=== PATIENT | female | born 1955 | race Caucasian/White ===

== ENCOUNTER 2017-04-14 08:07 | Inpatient (IN) | payer BC ==
[~2017-04-14] VITALS: Ht 160 cm; Wt 64.0 kg
[~2017-04-14 08:07] MED LIST: LANS30CA10 PO; THYROID SUPPLEMENT PO
[2017-04-14 08:13] VITALS: BP_SYST 108
[2017-04-14] MEDS ORDERED: NACL 0.9% 1,000 ML IV SCH (08:26)
[2017-04-14] MEDS ORDERED: PANTOPRAZOLE SODIUM 80 MG in NS 100 ML IV ONE (08:30)
[2017-04-14] MEDS ORDERED: ONDANSETRON HCL 4 MG/2 ML VIAL IVP ONE (08:30)
[2017-04-14 08:55] LABS: BASOPHILS # (AUTO) 0.1 K/uL (0.0-0.2); BASOPHILS % (AUTO) 0.5 % (0.0-2.0); EOSINOPHILS % (AUTO) 0.2 % (0.0-4.0); HEMATOCRIT 41.2 % (36-48); HEMOGLOBIN 13.8 g/dL (12.0-16.0); LYMPHOCYTES # (AUTO) 1.3 K/uL (1.0-5.5); MEAN CORPUSCULAR HEMOGLOBIN 31 pg (27-31); MEAN CORPUSCULAR HGB CONC 34 % (32-36); MEAN CORPUSCULAR VOLUME 92 fL (79.0-98.0); MONOCYTES # (AUTO) 0.5 K/uL (0.0-1.0); MONOCYTES % (AUTO) 2.8 % (1.7-9.3); NEUTROPHILS # (AUTO) 14.3 K/uL (1.8-7.7); NEUTROPHILS % (AUTO) 88.5 % (40.0-70.0); PLATELET COUNT (AUTO) 320 K/uL (130-430); RED BLOOD CELL COUNT(AUTO) 4.48 MIL/uL (4.2-6.2); RED CELL DISTRIBUTION WIDTH 11.9 % (9.0-15.0); WHITE BLOOD COUNT (AUTO) 16.2 K/uL (4.8-10.8)
[2017-04-14] MEDS ORDERED: PIPERACILLIN/TAZO 4.5 GM in NS 100 ML IV ONE (09:00)
[2017-04-14] MEDS ORDERED: VANCOMYCIN HCL 1,000 MG in NS 250 ML IV ONE (09:00)
[2017-04-14] MEDS ORDERED: MORPHINE 2 MG/ML INJ. SYRINGE IVP ONE (09:00)
[2017-04-14 09:02] LABS: CALCIUM 9.3 mg/dL (8.4-11.0); CREATININE 1.02 mg/dL (0.55-1.30); POTASSIUM 3.5 mmol/L (3.5-5.1)
[2017-04-14 09:03] LABS: PROTHROMBIN TIME 10.8 SECS (9.5-12.5)
[2017-04-14 09:07] LABS: ALBUMIN 4.4 g/dL (3.4-4.8); TOTAL BILIRUBIN 0.5 mg/dL (0.0-1.0); TOTAL PROTEIN, SERUM 7.8 g/dL (6.4-8.3)
[2017-04-14] MEDS ORDERED: PIPERACILLIN/TAZOBACTAM 4.5 GM/VIAL (ZOSYN) IV ONE (09:52)
[2017-04-14] MEDS ORDERED: VANCOMYCIN HCL 1000 MG/VIAL IV ONE (10:22)
[2017-04-14] MEDS ORDERED: PANTOPRAZOLE SODIUM 40 MG/VIAL (PROTONIX) ONE (10:22)
[2017-04-14] MEDS ORDERED: ONDANSETRON HCL 4 MG/2 ML VIAL IVP PRN (11:00)
[2017-04-14] MEDS ORDERED: metroNIDAZOLE 500 mg/NS 100 ML IV ONE (11:00)
[2017-04-14] MEDS ORDERED: MORPHINE 2 MG/ML INJ. SYRINGE IVP PRN (11:00)
[2017-04-14] MEDS ORDERED: MORPHINE 4 MG/ML INJ. SYRINGE IVP PRN (11:00)
[2017-04-14 11:26] VITALS: BP_SYST 91
[2017-04-14] MEDS ORDERED: PANTOPRAZOLE SODIUM 40 MG/VIAL (PROTONIX) IVP ONE (11:30)
[2017-04-14] MEDS: D5NS 1,000 ML IV SCH ×2 (12:13→21:00)
[2017-04-14] MEDS: LEVOFLOXACIN 500 MG/D5W 100 ML IV SCH (12:14)
[2017-04-14 15:11] LABS: HEMATOCRIT 38.4 % (36-48); HEMOGLOBIN 12.9 g/dL (12.0-16.0)
[2017-04-14 16:23] VITALS: BP_SYST 112
[2017-04-14] MEDS: METOCLOPRAMIDE HCL 10 MG/2 ML VIAL IVP PRN (18:25)
[2017-04-14] MEDS: ACETAMINOPHEN 325 MG TABLET PO PRN ×2 (18:25→23:30)
[2017-04-14] MEDS: metroNIDAZOLE 500 mg/NS 100 ML IV SCH (18:25)
[2017-04-14 19:30] VITALS: BP_SYST 105
[2017-04-14 21:07] LABS: HEMOGLOBIN 12.1 g/dL (12.0-16.0)
[2017-04-14] MEDS: PANTOPRAZOLE SODIUM 40 MG/VIAL (PROTONIX) IVP SCH (21:59)
[2017-04-15] MEDS: METOCLOPRAMIDE HCL 10 MG/2 ML VIAL IVP PRN ×2 (00:28→09:08)
[2017-04-15] MEDS: metroNIDAZOLE 500 mg/NS 100 ML IV SCH ×3 (02:28→18:05)
[2017-04-15 02:46] LABS: HEMATOCRIT 34.7 % (36-48); HEMOGLOBIN 11.8 g/dL (12.0-16.0)
[2017-04-15 03:53] VITALS: BP_SYST 117
[2017-04-15 08:00] VITALS: BP_SYST 101
[2017-04-15 08:30] LABS: HEMATOCRIT 34.3 % (36-48); HEMOGLOBIN 11.7 g/dL (12.0-16.0)
[2017-04-15] MEDS: PANTOPRAZOLE SODIUM 40 MG/VIAL (PROTONIX) IVP SCH ×2 (09:09→20:42)
[2017-04-15] MEDS: LEVOFLOXACIN 500 MG/D5W 100 ML IV SCH (10:00)
[2017-04-15 12:30] VITALS: BP_SYST 107
[2017-04-15 13:06] LABS: HEMATOCRIT 34.1 % (36-48); HEMOGLOBIN 11.6 g/dL (12.0-16.0)
[2017-04-15] MEDS: D5NS 1,000 ML IV SCH ×2 (15:59→20:42)
[2017-04-15 16:18] VITALS: BP_SYST 107
[2017-04-15] MEDS ORDERED: BISACODYL 5 MG TABLET.DR (DULCOLAX) PO ONE (17:00)
[2017-04-15] MEDS ORDERED: GOLYTELY / COLYTE SOLUTION 4 LITERS PO ONE (18:00)
[2017-04-15 18:59] LABS: HEMATOCRIT 33.3 % (36-48); HEMOGLOBIN 10.9 g/dL (12.0-16.0)
[2017-04-15 19:35] VITALS: BP_SYST 137
[2017-04-15 23:07] LABS: HEMATOCRIT 33.9 % (36-48); HEMOGLOBIN 11.8 g/dL (12.0-16.0)
[2017-04-16] VITALS (7 sets, daily range): BP systolic 97–114
[2017-04-16] MEDS: METOCLOPRAMIDE HCL 10 MG/2 ML VIAL IVP PRN ×2 (00:27→20:45)
[2017-04-16] MEDS: metroNIDAZOLE 500 mg/NS 100 ML IV SCH ×3 (03:39→19:02)
[2017-04-16] MEDS: D5NS 1,000 ML IV SCH ×2 (03:52→19:01)
[2017-04-16] MEDS ORDERED: LEVO75TA7 PO (05:59)
[2017-04-16 06:33] LABS: HEMATOCRIT 30.5 % (36-48); HEMOGLOBIN 10.4 g/dL (12.0-16.0)
[2017-04-16] MEDS: PANTOPRAZOLE SODIUM 40 MG/VIAL (PROTONIX) IVP SCH ×2 (09:00→20:45)
[2017-04-16 10:51] LABS: BASOPHILS % (AUTO) 0.4 % (0.0-2.0); EOSINOPHILS % (AUTO) 0.5 % (0.0-4.0); HEMATOCRIT 30.8 % (36-48); HEMOGLOBIN 10.4 g/dL (12.0-16.0); LYMPHOCYTES # (AUTO) 1.5 K/uL (1.0-5.5); LYMPHOCYTES % (AUTO) 20.8 % (20.5-51.5); MEAN CORPUSCULAR HEMOGLOBIN 31 pg (27-31); MEAN CORPUSCULAR HGB CONC 34 % (32-36); MEAN CORPUSCULAR VOLUME 92 fL (79.0-98.0); MONOCYTES # (AUTO) 0.4 K/uL (0.0-1.0); MONOCYTES % (AUTO) 5.3 % (1.7-9.3); NEUTROPHILS # (AUTO) 5.3 K/uL (1.8-7.7); PLATELET COUNT (AUTO) 196 K/uL (130-430); RED BLOOD CELL COUNT(AUTO) 3.37 MIL/uL (4.2-6.2); RED CELL DISTRIBUTION WIDTH 11.9 % (9.0-15.0); WHITE BLOOD COUNT (AUTO) 7.2 K/uL (4.8-10.8)
[2017-04-16] MEDS: LEVOFLOXACIN 500 MG/D5W 100 ML IV SCH (11:09)
[2017-04-16] MEDS ORDERED: MEPERIDINE HCL/PF 100 MG/ML AMP ONE (11:21)
[2017-04-16] MEDS ORDERED: SIMETHICONE 40 MG/0.6 ML ML ONE (11:21)
[2017-04-16] MEDS: MIDAZOLAM HCL 5 MG/5 ML VIAL ONE ×3 (13:02→13:06)
[2017-04-16 17:15] LABS: HEMATOCRIT 32.1 % (36-48); HEMOGLOBIN 10.5 g/dL (12.0-16.0)
[2017-04-16] MEDS: ACETAMINOPHEN 325 MG TABLET PO PRN (20:46)
[2017-04-16 23:05] LABS: HEMATOCRIT 29.7 % (36-48)
[2017-04-17 01:05] VITALS: BP_SYST 111
[2017-04-17] MEDS: metroNIDAZOLE 500 mg/NS 100 ML IV SCH ×2 (02:03→11:11)
[2017-04-17] MEDS: D5NS 1,000 ML IV SCH ×2 (02:04→09:00)
[2017-04-17 05:04] VITALS: BP_SYST 110
[2017-04-17 06:55] LABS: BASOPHILS % (AUTO) 0.2 % (0.0-2.0); EOSINOPHILS % (AUTO) 0.6 % (0.0-4.0); HEMATOCRIT 28.9 % (36-48); HEMOGLOBIN 9.8 g/dL (12.0-16.0); LYMPHOCYTES # (AUTO) 1.6 K/uL (1.0-5.5); LYMPHOCYTES % (AUTO) 24.3 % (20.5-51.5); MEAN CORPUSCULAR HEMOGLOBIN 31 pg (27-31); MEAN CORPUSCULAR HGB CONC 34 % (32-36); MEAN CORPUSCULAR VOLUME 91 fL (79.0-98.0); MONOCYTES # (AUTO) 0.3 K/uL (0.0-1.0); MONOCYTES % (AUTO) 5.4 % (1.7-9.3); NEUTROPHILS # (AUTO) 4.5 K/uL (1.8-7.7); NEUTROPHILS % (AUTO) 69.5 % (40.0-70.0); PLATELET COUNT (AUTO) 196 K/uL (130-430); RED BLOOD CELL COUNT(AUTO) 3.16 MIL/uL (4.2-6.2); RED CELL DISTRIBUTION WIDTH 11.8 % (9.0-15.0); WHITE BLOOD COUNT (AUTO) 6.4 K/uL (4.8-10.8)
[2017-04-17 07:23] LABS: ALBUMIN 2.9 g/dL (3.4-4.8); CALCIUM 7.8 mg/dL (8.4-11.0); CREATININE 0.67 mg/dL (0.55-1.30); TOTAL BILIRUBIN 0.3 mg/dL (0.0-1.0); TOTAL PROTEIN, SERUM 5.7 g/dL (6.4-8.3)
[2017-04-17 07:29] LABS: POTASSIUM 2.8 mmol/L (3.5-5.1)
[2017-04-17 08:00] VITALS: BP_SYST 115
[2017-04-17] MEDS ORDERED: POTASSIUM CHLORIDE 20 MEQ TAB.PRT.SR PO ONE ×2 (08:00→17:30)
[2017-04-17] MEDS: PANTOPRAZOLE SODIUM 40 MG/VIAL (PROTONIX) IVP SCH (09:20)
[2017-04-17] MEDS: LEVOFLOXACIN 500 MG/D5W 100 ML IV SCH (11:11)
[2017-04-17 12:50] VITALS: BP_SYST 114
[2017-04-17 16:56] VITALS: BP_SYST 121
[2017-04-17 18:14] VITALS: BP_SYST 98
== END 2017-04-17 18:40 | disposition home or self-care (01) | DRG 378 ==
LOC: SED 08:07 → SMU 10:02
PROVIDERS: ADMIT Internal Medicine Hospice and Palliative Medicine; ATTEND Internal Medicine Hospice and Palliative Medicine
PROC: 0DBN8ZX Excision of Sigmoid Colon, Via Natural or Artificial Opening Endoscopic, Diagnostic (ICD-10-PCS; 2017-04-16)
PROC: 0DBM8ZX Excision of Descending Colon, Via Natural or Artificial Opening Endoscopic, Diagnostic (ICD-10-PCS; principal; 2017-04-16 12:00)
DX: K92.2 Gastrointestinal hemorrhage, unspecified (principal); K51.50 Left sided colitis without complications; D64.9 Anemia, unspecified; E03.9 Hypothyroidism, unspecified; F17.210 Nicotine dependence, cigarettes, uncomplicated; K64.8 Other hemorrhoids; Z79.899 Other long term (current) drug therapy
CPT/HCPCS: 36415; 45380; 71010; 80053; 83605; 83690-TC; 84484; 85018-TC; 85025; 85610-TC; 86886; 86900; 86901; 87040-TC; 87045-TC; 87046; 87177; 87230-TC; 88305; 88307; 89055; 93005; 96374; 96375; 99285; C9113; J1956; J2175; J2250; J2270; J2405; J2543; J2765; J3370; J3490; J7030; J7042; J7050; J7060

== ENCOUNTER 2018-09-23 13:51 | Emergency (ER) | payer BC ==
[~2018-09-23] VITALS: Ht 160 cm; Wt 68.0 kg
[2018-09-23 13:51] VITALS: BP_SYST 134
[~2018-09-23 13:51] MED LIST changes: -LANS30CA10 PO; +LANS30CA53 PO; +LEVO75TA7 PO; -THYROID SUPPLEMENT PO
[2018-09-23] MEDS: DIPHENHYDRAMINE INJ 50 MG/ML VIAL IM ONE (14:27)
[2018-09-23 14:43] VITALS: BP_SYST 134
== END 2018-09-23 14:43 | disposition home or self-care (01) ==
LOC: SED 13:51
DX: H10.13 Acute atopic conjunctivitis, bilateral (principal); R03.0 Elevated blood-pressure reading, without diagnosis of hypertension; K21.9 Gastro-esophageal reflux disease without esophagitis
CPT/HCPCS: 96372; 99283; J1200

== ENCOUNTER 2021-01-21 20:10 | Emergency (ER) | payer BC ==
[~2021-01-21] VITALS: Ht 160 cm; Wt 71.7 kg
[2021-01-21 20:34] VITALS: BP_SYST 132
--- NOTE | 2021-01-21 20:34 | NUR ---
Patient triaged and placed in waiting room. VSS and patient appears in no acute distress at this time. Accompanied by SELF, awaiting available bed, and MD notified of need for MSE.
--- NOTE | 2021-01-21 20:45 | NUR ---
Patient to ER bed 7 to gown for evaluation. Side rails up. Report given to NAEEM BROWN.
--- NOTE | 2021-01-21 21:00 | NUR ---
Patient AAO and ambulatory arrived to ER C/O blood in stool starting today. Patient stated she took 2 colace capsules and after has been having bright red bloody bowel movements. Patient has a history of colitis which has resolved per patient. Denies any dizziness. VSS, cap refill <3 seconds. currently denies any pain but states she does get occasional abdominal cramps. awaiting for MD hardy.
--- NOTE | 2021-01-21 21:09 | NUR ---
Dr. Mcmahon at bedside for evaluation.
--- NOTE | 2021-01-21 21:49 | NUR ---
lab at bedside to collect blood samples and sent to for analysis.
--- NOTE | 2021-01-21 22:15 | NUR ---
# 20 gauge angiocath placed to left AC. Use of asceptic technique. Opsite placed over site. Blood return noted. Flushed with 10 cc of normal saline. No evidence of infiltration noted. Patient tolerated well.
[2021-01-21 22:26] LABS: CALCIUM 9.1 mg/dL (8.4-11.0); CREATININE 0.97 mg/dL (0.55-1.30); POTASSIUM 4.2 mmol/L (3.5-5.1)
[2021-01-21 22:29] LABS: PROTHROMBIN TIME 10.6 SECS (9.5-12.5)
[2021-01-21 22:31] LABS: ALBUMIN 4.2 g/dL (3.4-4.8); TOTAL BILIRUBIN 0.5 mg/dL (0.0-1.0)
[2021-01-21 22:37] LABS: BASOPHILS % (AUTO) 0.1 % (0.0-2.0); EOSINOPHILS % (AUTO) 0.1 % (0.0-4.0); HEMATOCRIT 40.4 % (36-48); HEMOGLOBIN 13.7 g/dL (12.0-16.0); LYMPHOCYTES # (AUTO) 0.8 K/uL (1.0-5.5); LYMPHOCYTES % (AUTO) 8.5 % (20.5-51.5); MEAN CORPUSCULAR HEMOGLOBIN 30 pg (27-31); MEAN CORPUSCULAR HGB CONC 34 % (32-36); MEAN CORPUSCULAR VOLUME 89 fL (79.0-98.0); MONOCYTES # (AUTO) 0.3 K/uL (0.0-1.0); NEUTROPHILS # (AUTO) 8.2 K/uL (1.8-7.7); NEUTROPHILS % (AUTO) 88.3 % (40.0-70.0); PLATELET COUNT (AUTO) 262 K/uL (130-430); RED BLOOD CELL COUNT(AUTO) 4.54 MIL/uL (4.2-6.2); RED CELL DISTRIBUTION WIDTH 13.2 % (9.0-15.0); WHITE BLOOD COUNT (AUTO) 9.3 K/uL (4.8-10.8)
--- NOTE | 2021-01-21 23:07 | NUR ---
Report given to Dolores HARTLEY
[2021-01-21 23:20] VITALS: BP_SYST 130
--- NOTE | 2021-01-21 23:21 | NUR ---
Patient given written and verbal discharge instructions and verbalizes understanding. DR. URIAH VILLAGOMEZ MD discussed with patient the results and treatment provided. Patient in stable condition. ID arm band removed. IV catheter removed intact and dressing applied, no active bleeding. Patient educated on pain management and to follow up with PMD. Pain Scale 0/10. Opportunity for questions provided and answered. Medication side effect fact sheet provided.
== END 2021-01-21 23:20 | disposition home or self-care (01) ==
LOC: SED 20:10
DX: K62.5 Hemorrhage of anus and rectum (principal); K60.2 Anal fissure, unspecified; K21.9 Gastro-esophageal reflux disease without esophagitis; Z79.899 Other long term (current) drug therapy
CPT/HCPCS: 36415; 74178; 76376; 80053; 83605; 83690; 85025; 85610; 86886; 86900; 86901; 99285; Q9967

== ENCOUNTER 2022-04-10 16:33 | Emergency (ER) | payer BC ==
[~2022-04-10] VITALS: Ht 157.5 cm; Wt 69.9 kg
[2022-04-10 16:48] VITALS: BP_SYST 133
--- NOTE | 2022-04-10 16:57 | NUR ---
Patient triaged and placed in ER waiting room awaiting available bed in main ED. MD aware of MSE needs.
[2022-04-10] MEDS ORDERED: ASPIRIN 81 MG TAB.CHEW PO ONE (19:00)
[2022-04-10] MEDS ORDERED: IBUPROFEN 600 MG TABLET PO ONE (19:00)
[2022-04-10 19:19] LABS: BASOPHILS # (AUTO) 0.1 K/uL (0.0-0.2); BASOPHILS % (AUTO) 1.3 % (0.0-2.0); EOSINOPHILS % (AUTO) 0.8 % (0.0-4.0); HEMATOCRIT 41.4 % (36-48); HEMOGLOBIN 14.2 g/dL (12.0-16.0); LYMPHOCYTES # (AUTO) 1.1 K/uL (1.0-5.5); LYMPHOCYTES % (AUTO) 20.8 % (20.5-51.5); MEAN CORPUSCULAR HEMOGLOBIN 30 pg (27-31); MEAN CORPUSCULAR HGB CONC 34 % (32-36); MEAN CORPUSCULAR VOLUME 89 fL (79.0-98.0); MONOCYTES # (AUTO) 0.3 K/uL (0.0-1.0); MONOCYTES % (AUTO) 5.6 % (1.7-9.3); NEUTROPHILS # (AUTO) 3.9 K/uL (1.8-7.7); NEUTROPHILS % (AUTO) 71.5 % (40.0-70.0); PLATELET COUNT (AUTO) 260 K/uL (130-430); RED BLOOD CELL COUNT(AUTO) 4.67 MIL/uL (4.2-6.2); WHITE BLOOD COUNT (AUTO) 5.5 K/uL (4.8-10.8)
--- NOTE | 2022-04-10 19:30 | NUR ---
ASSUME CARE OF THIS PATIENT AT THIS TIME HERE AND EVALUATED FOR LT SIDED CHEST PAIN AND PER PT RADIATES TO HER LT ARM. PER PT SHE WAS MEDICATED EARLIER AND FEEL MUCH BETTER AT THIS TIME. DENIES ANY PAIN AT THIS TIME, DENIES SOB. PATIENT AAOX4 AT THIS TIME. SHE STATESD THAT SHE IS TAKING MEDS FOR HER THYROID. PENDING MD GUILLE ESPINOZA. WILL CONTINUE TO MONITOR.
[2022-04-10 19:35] LABS: ANION GAP 8 (5-15); CALCIUM 8.8 mg/dL (8.4-11.0); CHLORIDE 105 mmol/L (98-107); CREATININE 0.84 mg/dL (0.55-1.30); GLUCOSE 94 mg/dL (70-99); POTASSIUM 4.2 mmol/L (3.5-5.1); SODIUM SERUM 140 mmol/L (136-145); UREA NITROGEN, BLOOD 13 mg/dL (8-21)
[2022-04-10 19:47] LABS: ALANINE AMINOTRANSFERASE 32 U/L (12-78); ASPARTATE AMINOTRANSFERASE 30 U/L (10-37); TOTAL BILIRUBIN 0.2 mg/dL (0.0-1.0)
[2022-04-10 19:50] LABS: GFR AFRICAN AMERICAN 87 mL/min (>90)
--- NOTE | 2022-04-10 22:02 | NUR ---
PT AAOX4, NO SOB NOTED AND NOT IN ANY DISTRESS AT THIS TIME.
[2022-04-10] MEDS ORDERED: IBUP-1971 PO (22:21)
[2022-04-10 22:29] VITALS: BP_SYST 138
--- NOTE | 2022-04-10 22:32 | NUR ---
DC PT HOME AAOX4, NO SOB NOTED AND NOT IN ANY DISTRESS, DC INSTRUCTION AND PRESCRIPTION WERE GIVEN TO PATIENT ALSO INSTRUCTED TO F/U WITH HER PCP. SHE VERBALIZED UNDERSTANDING
== END 2022-04-10 22:32 | disposition home or self-care (01) ==
LOC: SED 16:33
DX: M79.602 Pain in left arm (principal); R07.9 Chest pain, unspecified; E78.5 Hyperlipidemia, unspecified; M19.90 Unspecified osteoarthritis, unspecified site; K21.9 Gastro-esophageal reflux disease without esophagitis
CPT/HCPCS: 36415; 80053; 82550; 84484; 85025; 93005; 99285